=== PATIENT | female | born 1990 | race Caucasian/White ===

== ENCOUNTER 2017-05-16 13:13 | Emergency (ER) | payer BC ==
[2017-05-16] MEDS ORDERED: NS 0.9% 1000 ML* 2,000 ML IV ONE (14:27)
[2017-05-16 14:54] LABS: Hematocrit 38 % (35-47); Hemoglobin 12.6 g/dl (12.0-16.0); Mean Corpuscular HGB Conc 33 g/dl (31-36); Mean Corpuscular Hemoglobin 28 pg (27-31); Mean Corpuscular Volume 83 fL (80-97); Mean Platelet Volume 9 um3 (7.4-10.4); Red Blood Count 4.53 10^6/ul (4.0-5.4); Red Cell Distribution Width 13 % (10.5-15); White Blood Count 7.7 10^3/ul (3.5-10.8)
[2017-05-16 15:12] LABS: Albumin 4.5 g/dL (3.2-5.2); BUN/Creatinine Ratio 15.9 (8-20); C Reactive Protein 1.46 mg/L (< 5.00); Calcium 9.2 mg/dL (8.6-10.3); EGFR African American 130.3 (>60); EGFR Non-African American 101.3 (>60); Globulin 2.4 g/dL (2-4); Potassium 3.5 mmol/L (3.5-5.0); Total Bilirubin 0.5 mg/dL (0.2-1.0); Total Protein 6.9 g/dL (6.4-8.9)
--- NOTE | 2017-05-16 16:35 | RAD ---
Indication: Patient had early termination of medically. Real-time sonography of the pelvis was performed. The uterus measures 10.8 x 5.0 x 6.1 cm. Image echo measures 16 mm. No free fluid is identified. The right ovary measures 2.1 x 1.6 x 1.6 cm. Left ovary measures 2.9 x 2.0 x 2.1 cm. Previously identified free fluid is no longer present. IMPRESSION: No adnexal masses are noted. No intrauterine is noted. Endometrial echo measures 16 mm.
[2017-05-16 17:09] LABS: Urine Bacteria Absent (Absent); Urine Bilirubin Negative (Negative); Urine Glucose Negative (Negative); Urine Nitrite Negative (Negative)
[2017-05-16 18:56] LABS: Hematocrit 33 % (35-47); Hemoglobin 11.2 g/dl (12.0-16.0); Mean Corpuscular HGB Conc 34 g/dl (31-36); Mean Corpuscular Hemoglobin 29 pg (27-31); Mean Corpuscular Volume 85 fL (80-97); Mean Platelet Volume 9 um3 (7.4-10.4); Red Blood Count 3.92 10^6/ul (4.0-5.4); Red Cell Distribution Width 13 % (10.5-15); White Blood Count 8.3 10^3/ul (3.5-10.8)
--- NOTE | 2017-05-16 20:04 | ED ---
Quin Purdy Edward, scribed for Naif Murdock MD on 05/16/17 at 1435 . GI/ HPI - HPI Summary HPI Summary: 26 y/o female presents to the ED c/o sudden onset, heavy vaginal bleeding starting at around 06:00 this morning. It became worse at around 10:00 when the pt stood up at work. Pt tried using tampons but she says it bleeds right through. Pt states she uses around 1-2 pads per hour. Pt had a medical around 5 weeks ago - she was 5 weeks at the time. Pt had mild bleeding just after the . This is the first episode of heavy bleeding s/p . LNMP started several days ago that started normal. Associated sx: mild cramping, lightheadedness. Denies fevers/chills. Sx fallopian tube removal 1 year ago on the L side with Dr. Torres. PMHx kidney stones. G/P/A - - History of Current Complaint Chief Complaint: EDVaginalBleeding Stated Complaint: VAGINAL BLEEDING Hx Obtained From: Patient Hx Last Menstrual Period: 01/13/2016 Onset/Duration: Started Hours Ago, Still Present Timing: Constant Current Severity: Severe - heavy Vaginal Bleeding Description: Bright Red Number of Pads per Hour: 2 Pain Intensity: 0 Pain Characteristics: Cramping Associated Signs and Symptoms: Positive: Lightheadedness - Allergy/Home Medications Allergies/Adverse Reactions: Allergies Allergy/AdvReac Type Severity Reaction Status Date / Time Shellfish Allergy Allergy Rash Verified 01/20/16 22:33 PMH/Surg Hx/FS Hx/Imm Hx Previously Healthy: No Endocrine/Hematology History: Reports: Hx Anemia Respiratory History: Reports: Hx Asthma - anemia History: Reports: Hx Kidney Stones - LEFT URETERAL CALCULUS 05/05/2013, Other Problems/Disorders - kidney stones w/ stent placed 05/04/13 - Surgical History Surgery Procedure, Year, and Place: 01/21/16 lap left salpingectomy Hx Anesthesia Reactions: No Infectious Disease History: No Infectious Disease History: Denies: Traveled Outside the [place] in Last 30 Days - Family History Known Family History: Negative: Cardiac Disease - Social History Alcohol Use: None Hx Substance Use: No Substance Use Type: Reports: None Hx Tobacco Use: No Smoking Status (MU): Never Smoked Tobacco Review of Systems Constitutional: Negative Eyes: Negative ENT: Negative Cardiovascular: Negative Respiratory: Negative Gastrointestinal: Negative Positive: other - heavy vaginal bleeding, cramping Musculoskeletal: Negative Skin: Negative Neurological: Other - lightheadedness Psychological: Normal All Other Systems Reviewed And Are Negative: Yes Physical Exam Triage Information Reviewed: Yes Vital Signs On Initial Exam: Initial Vitals Temp Pulse Resp BP Pulse Ox 98.9 F 77 16 136/81 98 05/16/17 13:24 05/16/17 13:24 05/16/17 13:24 05/16/17 13:24 05/16/17 13:24 Vital Signs Reviewed: Yes Appearance: Positive: Well-Appearing, No Pain Distress Skin: Positive: Warm, Skin Color Reflects Adequate Perfusion, Dry Head/Face: Positive: Normal Head/Face Inspection Eyes: Positive: EOMI, CONNER ENT: Positive: Normal ENT inspection Neck: Positive: Supple, Nontender Respiratory/Lung Sounds: Positive: Clear to Auscultation, Breath Sounds Present Cardiovascular: Positive: RRR Abdomen Description: Positive: Nontender, Soft Bowel Sounds: Positive: Present Musculoskeletal: Positive: Normal, Strength/ROM Intact Neurological: Positive: Normal, Sensory/Motor Intact, Alert, Oriented to Person Place, Time Psychiatric: Positive: Affect/Mood Appropriate Diagnostics - Vital Signs Vital Signs Temp Pulse Resp BP Pulse Ox 05/16/17 13:24 98.9 F 77 16 136/81 98 - Laboratory Lab Results: Lab Results 05/16/17 05/16/17 05/16/17 Range/Units 14:45 14:45 14:45 WBC 7.7 (3.5-10.8) 10^3/ul RBC 4.53 (4.0-5.4) 10^6/ul Hgb 12.6 (12.0-16.0) g/dl Hct 38 (35-47) % MCV 83 (80-97) fL MCH 28 (27-31) pg MCHC 33 (31-36) g/dl RDW 13 (10.5-15) % Plt Count 167 (150-450) 10^3/ul MPV 9 (7.4-10.4) um3 Neut % (Auto) 77.6 (38-83) % Lymph % (Auto) 15.5 L (25-47) % [place] % (Auto) 5.6 (1-9) % Eos % (Auto) 0.8 (0-6) % Baso % (Auto) 0.5 (0-2) % Absolute Neuts (auto) 6.0 (1.5-7.7) 10^3/ul Absolute Lymphs (auto) 1.2 (1.0-4.8) 10^3/ul Absolute Monos (auto) 0.4 (0-0.8) 10^3/ul Absolute Eos (auto) 0.1 (0-0.6) 10^3/ul Absolute Basos (auto) 0 (0-0.2) 10^3/ul Absolute Nucleated RBC 0 10^3/ul Nucleated RBC % 0.1 INR (Anticoag Therapy) 0.95 (0.89-1.11) APTT 29.8 (26.0-36.3) seconds Sodium 137 (133-145) mmol/L Potassium 3.5 (3.5-5.0) mmol/L Chloride 105 (101-111) mmol/L Carbon Dioxide 25 (22-32) mmol/L Anion Gap 7 (2-11) mmol/L BUN 11 (6-24) mg/dL Creatinine 0.69 (0.51-0.95) mg/dL Est GFR ( Amer) 130.3 (>60) Est GFR (Non-Af Amer) 101.3 (>60) BUN/Creatinine Ratio 15.9 (8-20) Glucose 86 (70-100) mg/dL Lactic Acid (0.5-2.0) mmol/L Calcium 9.2 (8.6-10.3) mg/dL Total Bilirubin 0.50 (0.2-1.0) mg/dL AST 17 (13-39) U/L ALT 13 (7-52) U/L Alkaline Phosphatase 35 (34-104) U/L C-Reactive Protein 1.46 (< 5.00) mg/L Total Protein 6.9 (6.4-8.9) g/dL Albumin 4.5 (3.2-5.2) g/dL Globulin 2.4 (2-4) g/dL Albumin/Globulin Ratio 1.9 (1-3) Beta HCG, Quant 310.00 mIU/mL Urine Color Urine Appearance Urine pH (5-9) Ur Specific [place] (1.010-1.030) Urine Protein (Negative) Urine Ketones (Negative) Urine Blood (Negative) Urine Nitrate (Negative) Urine Bilirubin (Negative) Urine Urobilinogen (Negative) Ur Leukocyte Esterase (Negative) Urine WBC (Auto) (Absent) Urine RBC (Auto) (Absent) Ur Squamous Epith Cells (Absent) Urine Bacteria (Absent) Urine Glucose (Negative) 05/16/17 05/16/17 05/16/17 Range/Units 14:45 16:54 18:52 WBC 8.3 (3.5-10.8) 10^3/ul RBC 3.92 L (4.0-5.4) 10^6/ul Hgb 11.2 L (12.0-16.0) g/dl Hct 33 L (35-47) % MCV 85 (80-97) fL MCH 29 (27-31) pg MCHC 34 (31-36) g/dl RDW 13 (10.5-15) % Plt Count 145 L (150-450) 10^3/ul MPV 9 (7.4-10.4) um3 Neut % (Auto) 76.1 (38-83) % Lymph % (Auto) 17.5 L (25-47) % [place] % (Auto) 4.8 (1-9) % Eos % (Auto) 0.6 (0-6) % Baso % (Auto) 1.0 (0-2) % Absolute Neuts (auto) 6.3 (1.5-7.7) 10^3/ul Absolute Lymphs (auto) 1.5 (1.0-4.8) 10^3/ul Absolute Monos (auto) 0.4 (0-0.8) 10^3/ul Absolute Eos (auto) 0 (0-0.6) 10^3/ul Absolute Basos (auto) 0.1 (0-0.2) 10^3/ul Absolute Nucleated RBC 0.01 10^3/ul Nucleated RBC % 0.1 INR (Anticoag Therapy) (0.89-1.11) APTT (26.0-36.3) seconds Sodium (133-145) mmol/L Potassium (3.5-5.0) mmol/L Chloride (101-111) mmol/L Carbon Dioxide (22-32) mmol/L Anion Gap (2-11) mmol/L BUN (6-24) mg/dL Creatinine (0.51-0.95) mg/dL Est GFR ( Amer) (>60) Est GFR (Non-Af Amer) (>60) BUN/Creatinine Ratio (8-20) Glucose (70-100) mg/dL Lactic Acid 0.7 (0.5-2.0) mmol/L Calcium (8.6-10.3) mg/dL Total Bilirubin (0.2-1.0) mg/dL AST (13-39) U/L ALT (7-52) U/L Alkaline Phosphatase (34-104) U/L C-Reactive Protein (< 5.00) mg/L Total Protein (6.4-8.9) g/dL Albumin (3.2-5.2) g/dL Globulin (2-4) g/dL Albumin/Globulin Ratio (1-3) Beta HCG, Quant mIU/mL Urine Color Red A Urine Appearance Cloudy Urine pH 6.0 (5-9) Ur Specific [place] 1.008 L (1.010-1.030) Urine Protein 1+(30 mg/dl) H (Negative) Urine Ketones Trace H (Negative) Urine Blood 3+ H (Negative) Urine Nitrate Negative (Negative) Urine Bilirubin Negative (Negative) Urine Urobilinogen Negative (Negative) Ur Leukocyte Esterase Negative (Negative) Urine WBC (Auto) Trace(0-5/hpf) (Absent) Urine RBC (Auto) 3+(>10/hpf) H (Absent) Ur Squamous Epith Cells Present H (Absent) Urine Bacteria Absent (Absent) Urine Glucose Negative (Negative) Result Diagrams: 05/16/17 18:52 05/16/17 14:45 Lab Statement: Any lab studies that have been ordered have been reviewed, and results considered in the medical decision making process. - Ultrasound No standard instances Ultrasound Interpretation: No Acute Changes - No adnexal masses are noted. No intrauterine is noted. Endometrial echo measures 16 mm. Ultrasound Interpretation Completed By: Radiologist - ED PHYSICIAN [employer]IEWS [employer]REES Re-Evaluation - Re-Evaluation 1 Re-Evaluation Time: 17:56 Comment: Discuss plan of care 2 Re-Evaluation Time: 19:55 Comment: Discuss plan of care GIGU Course/Dx - Course Course Of Treatment: DISCUSSED RESULTS WITH PATIENT/. DISCUSSED WITH [facility]. RECHECKED HGB/HCT AND ORTHOSTATICS. DISCUSSED F/U WITH OBGYN TOMORROW IN THE AM VERSES OBSERVATION IN THE HOSPITAL. PATIENT PREFERS TO GO HOME WITH CLOSE OUT PATIENT FOLLOW UP. F/O OBGYN TOMORROW; RETURN TO ED IF WORSE. CRITICAL CARE TIME LESS THAN 30 MINUTES. Assessment/Plan: Spoke with Dr. Garcia again @ 19:49. - Diagnoses Provider Diagnoses: Excessive vaginal bleeding - Physician Notifications Discussed Care Of Patient With: Emerald Garcia Time Discussed With Above Provider: 17:24 Instructed by Provider To: Other - heavy periods common after medical Discharge - Discharge Plan Condition: Stable Disposition: HOME Patient Education Materials: Dysfunctional Uterine Bleeding (ED) Referrals: [facility] [Provider Group] Emerald Garcia MD [Medical Doctor] - Dayana Benson MD [Primary Care Provider] - Additional Instructions: FOLLOW UP WITH [facility]. CALL AT 8AM TOMORROW, 05/17/17 TO ARRANGE FOLLOW UP. RETURN TO THE EMERGENCY DEPARTMENT FOR ANY WORSENING OF YOUR CONDITION; EXCESSIVE BLEEDING, YOU FEEL ILL, FEVER, YOU FEEL LIKE PASSING OUT OR QUESTIONS OR CONCERNS. The documentation as recorded by the Quin iyer Edward accurately reflects the service I personally performed and the decisions made by me, Naif Murdock MD.
[2017-05-16 20:34] VITALS: BP 106/66
== END 2017-05-16 20:34 | disposition home or self-care (01) ==
LOC: ED 13:13
DX: O03.6 Delayed or excessive hemorrhage following complete or unspecified spontaneous abortion (principal); Z87.442 Personal history of urinary calculi; D64.9 Anemia, unspecified; J45.909 Unspecified asthma, uncomplicated
CPT/HCPCS: 36415; 76856; 80053; 81003; 81015; 83605; 84702; 85025; 85610; 85730; 86140; 96360; 99284

== ENCOUNTER 2019-05-14 17:41 | Emergency (ER) | payer BC ==
[2019-05-14 17:59] VITALS: BP 127/77
--- NOTE | 2019-05-14 18:10 | UC ---
Respiratory Complaint HPI - HPI Summary HPI Summary: Patient is a 28yo female presenting with cough x3 weeks. Notes productive of clear sputum at times. Mostly coughing at night. Notes wheezing at night as well. Denies SOB. Denies chest pain. Denies URI symptoms. Denies fever and chills. Denies n/v. Patient states she has taken mucinex without relief. States she has used her daughter's inhaler which helps at night. Denies h/o asthma and allergies. Never smoker. - History of Current Complaint Stated Complaint: URI Hx Obtained From: Patient Hx Last Menstrual Period: 3 WEEKS AGO Onset/Duration: Gradual Onset, Lasting Weeks Pain Intensity: 0 - Allergies/Home Medications Allergies/Adverse Reactions: Allergies Allergy/AdvReac Type Severity Reaction Status Date / Time MS Shellfish Allergy Allergy Rash Verified 01/20/16 22:33 [Shellfish Allergy] shellfish derived Allergy Rash Verified 05/14/19 17:56 Home Medications: Home Medications Bcp 1 tab PO DAILY 05/14/19 [History] PMH/Surg Hx/FS Hx/Imm Hx Previously Healthy: Yes - Surgical History Surgical History: Yes Surgery Procedure, Year, and Place: 01/21/16 lap left salpingectomy - Family History Known Family History: Negative: Cardiac Disease - Social History Alcohol Use: Occasionally Substance Use Type: None Smoking Status (MU): Never Smoked Tobacco - Immunization History Most Recent Influenza Vaccination: never Most Recent Tetanus Shot: 08/20/13 Most Recent Pneumonia Vaccination: never Review of Systems All Other Systems Reviewed And Are Negative: Yes Constitutional: Positive: Negative ENT: Negative: Sore Throat, Ear Ache, Nasal Discharge, Sinus Congestion, Sinus Pain/Tenderness Respiratory: Positive: Cough, Other - wheezing at night. Negative: Shortness Of Breath Cardiovascular: Positive: Negative Gastrointestinal: Positive: Negative Musculoskeletal: Positive: Negative Neurological: Positive: Negative Physical Exam Triage Information Reviewed: Yes Appearance: Well-Appearing, No Pain Distress, Well-Nourished Vital Signs: Initial Vital Signs Temp 98.7 F 05/14/19 17:57 Pulse 68 05/14/19 17:57 Resp 18 05/14/19 17:57 BP 127/77 05/14/19 17:57 Pulse Ox 99 05/14/19 17:57 Vital Signs Reviewed: Yes Eyes: Positive: Conjunctiva Clear ENT: Positive: Hearing grossly normal, Pharyngeal erythema, TMs normal, Uvula midline. Negative: Nasal congestion, Nasal drainage, Tonsillar swelling, Tonsillar exudate, Sinus tenderness Neck exam: Normal Neck: Positive: Supple, Nontender, No Lymphadenopathy Respiratory Exam: Normal Respiratory: Positive: Lungs clear, Normal breath sounds, No respiratory distress, No accessory muscle use. Negative: Crackles, Rhonchi, Stridor, Wheezing, Plerual rub Cardiovascular Exam: Normal Cardiovascular: Positive: RRR Neurological: Positive: Alert Psychological: Positive: Age Appropriate Behavior Respiratory Course/Dx - Course Course Of Treatment: VS normal, including O2 sat 99%. Lung sounds clear. Discussed viral bronchitis with patient. I treated with prednisone and albuterol inhaler. Patient states having an appointment on Tuesday with her pcp so I encouraged her to recheck her symptoms there if not improving. Patient voiced understanding and agreed with treatment plan. - Differential Dx/Diagnosis Provider Diagnosis: Acute bronchitis Discharge ED - Sign-Out/Discharge Documenting (check all that apply): Patient Departure All imaging exams completed and their final reports reviewed: No Studies - Discharge Plan Condition: Stable Disposition: HOME Prescriptions: Albuterol HFA INHALER* [Ventolin HFA Inhaler*] 1 - 2 puff INH Q6H PRN #1 mdi PRN Reason: Sob/Wheezing predniSONE TAB* [Deltasone 20 MG TAB*] 40 mg PO DAILY #10 tab Patient Education Materials: Acute Bronchitis (ED) Referrals: Dayana Benson MD [Primary Care Provider] - If Needed Additional Instructions: As discussed, your symptoms are most likely caused by a virus. Use of the albuterol inhaler as needed for your shortness of breath and wheezing. Take the prednisone as prescribed to help relieve inflammation in the lungs. You may take ibuprofen as directed for pain relief. Get plenty of rest and increase your fluid intake. Follow up with your primary care doctor appointment on Tuesday this week for re-evaluation of your symptoms if needed. - Billing Disposition and Condition Condition: STABLE Disposition: Home
== END 2019-05-14 18:25 | disposition home or self-care (01) ==
LOC: UCEAST 17:41
DX: J20.9 Acute bronchitis, unspecified (principal); R06.2 Wheezing; Z91.013 Allergy to seafood
CPT/HCPCS: 99212; G0463

== ENCOUNTER 2019-05-20 10:08 | Emergency (ER) | payer BC ==
[2019-05-20 10:17] VITALS: BP 112/70
--- NOTE | 2019-05-20 10:37 | UC ---
Eye Complaint HPI - HPI Summary HPI Summary: 28 yo WF p/w right upper lid swelling and B/L conjunctivial erythema. States she woke up with crusty yellow d/c on tight eye, denies visual changes. States she is currently being tx'd for bronchitis withe steroids - History of Current Complaint Chief Complaint: UCEye Stated Complaint: EYE ISSUE Time Seen by Provider: 05/20/19 10:22 Hx Obtained From: Patient Hx Last Menstrual Period: 3 WEEKS AGO Onset/Duration: Sudden Onset, Lasting Days Timing: Constant Severity Initially: Moderate Severity Currently: Moderate Pain Intensity: 4 - Allergies/Home Medications Allergies/Adverse Reactions: Allergies Allergy/AdvReac Type Severity Reaction Status Date / Time shellfish derived Allergy Rash Verified 05/14/19 17:56 Home Medications: Home Medications Levonorgestrel-Ethin Estradiol [Vienva-28 Tablet] 1 tab PO DAILY 05/20/19 [ History Confirmed 05/20/19] PMH/Surg Hx/FS Hx/Imm Hx - Surgical History Surgical History: Yes Surgery Procedure, Year, and Place: 01/21/16 lap left salpingectomy - Family History Known Family History: Positive: Non-Contributory Negative: Cardiac Disease - Social History Alcohol Use: Occasionally Substance Use Type: None Smoking Status (MU): Never Smoked Tobacco - Immunization History Most Recent Influenza Vaccination: never Most Recent Tetanus Shot: 08/20/13 Most Recent Pneumonia Vaccination: never Review of Systems All Other Systems Reviewed And Are Negative: Yes Constitutional: Positive: Negative Skin: Positive: Negative Eyes: Positive: Drainage, Eye Redness. Negative: Blurred Vision, Diplopia, Photophobia ENT: Positive: Negative Respiratory: Positive: Negative Cardiovascular: Positive: Negative Gastrointestinal: Positive: Negative Motor: Positive: Negative Neurovascular: Positive: Negative Musculoskeletal: Positive: Negative Neurological: Positive: Negative Psychological: Positive: Negative Physical Exam - Summary Physical Exam Summary: Reviewed: Yes Eye Exam: Normal Eyes: Positive: B/L Conjunctival erythema and mild to moderate right upper lid swelling ENT: Positive: Normal ENT inspection Neck: Positive: Supple Respiratory Exam: Normal Respiratory: Positive: Lungs clear, Normal breath sounds. Cardiovascular Exam: Normal Cardiovascular: Positive: RRR Abdomen: NT/ND Musculoskeletal Exam: Normal Neurological Exam: Normal Psychological Exam: Normal Skin Exam: Normal Vital Signs: Initial Vital Signs Temp 36.6 C 05/20/19 10:12 Pulse 80 05/20/19 10:12 Resp 18 05/20/19 10:12 BP 112/70 05/20/19 10:12 Pulse Ox 100 05/20/19 10:12 Eye Complaint Course/Dx - Differential Dx/Diagnosis Provider Diagnosis: Conjunctivitis, Blepharitis of right upper eyelid Discharge ED - Sign-Out/Discharge Documenting (check all that apply): Patient Departure All imaging exams completed and their final reports reviewed: No Studies - Discharge Plan Condition: Stable Disposition: HOME Prescriptions: Ciprofloxacin 0.3% OPTH.TERRENCE* [Cipro 0.3% Opth*] 2 drop BOTH EYES Q8H 7 Days #1 btl Patient Education Materials: Conjunctivitis (ED), Blepharitis (ED) Referrals: Maryjane Arrieta [facility] [Primary Care Provider] - - Billing Disposition and Condition Condition: STABLE Disposition: Home
== END 2019-05-20 10:45 | disposition home or self-care (01) ==
LOC: UCEAST 10:08
DX: H01.001 Unspecified blepharitis right upper eyelid (principal); H10.9 Unspecified conjunctivitis; Z91.013 Allergy to seafood
CPT/HCPCS: 99212; G0463

== ENCOUNTER 2023-09-17 21:55 | Inpatient (IN) ==
[2023-09-17] MEDS ORDERED: Buffered Lidocaine 1% SYRIN 1 ml INTRADERM ONE ×2 (22:32→22:53)
[2023-09-17] MEDS ORDERED: Lidocaine 1% VIAL 10 MG/ML 30 ML VIAL INJ PRN (22:53)
[2023-09-17] MEDS ORDERED: Lactated Ringers 1000 ml BAG 1,000 ML IV ONE (22:53)
[2023-09-17] MEDS: Lactated Ringers 1000 ml BAG 1,000 ML IV SCH (23:53)
[2023-09-18] MEDS: Penicillin G Potassium IV 5,000,000 UNITS in NS 0.9% 100 ml BAG 100 ML IVPB ONE (00:04)
[2023-09-18 00:16] LABS: ABS Lymphocytes 1.4 10^3/uL (1.0-4.8); ABS Monocytes 0.7 10^3/uL (0.0-0.9); ABS Neutrophils 7.6 10^3/uL (1.5-7.6); ABS Nucleated RBC 0.01 10^3/ul; Eosinophil % 0.5 %; Hematocrit 31.4 % (35-45); Hemoglobin 10.7 g/dL (11.5-14.3); Lymphocyte % 14.1 %; Mean Corpuscular Hemoglobin 26.9 pg (27-33); Mean Corpuscular Hgb Conc 34.1 g/dL (31-36); Mean Corpuscular Volume 78.9 fL (80-97); Mean Platelet Volume 9.6 fL (7.5-11.2); Nucleated Red Blood Cells % 0.1 %/100WBC (0.0-0.8); Platelet Count 174 10^3/uL (150-450); Red Blood Count 3.98 10^6/uL (3.63-4.92); Red Cell Distribution Width 14.6 % (12-17); White Blood Count 9.8 10^3/uL (3.8-11.8)
[2023-09-18 00:38] LABS: Urine Benzodiazepine Screen None Detected (None Detect); Urine Cannabinoids Screen None Detected (None Detect); Urine Opiates Screen None Detected (None Detect)
[2023-09-18] MEDS: OBEPIDURAL (200 ML) 200 ML EPIDURAL ONE (02:15)
[2023-09-18] MEDS ORDERED: Phenylephrine 40 mcg/mL 10mL (400mcg) SYRINGE IV PUSH PRN ×2 (02:24)
[2023-09-18] MEDS ORDERED: Sodium Citrate/Citric Acid LIQ 15 ML UDC PO PRN (02:24)
[2023-09-18 03:16] LABS: Urine Appearance Clear; Urine Bilirubin Negative (Negative); Urine Blood Negative (Negative); Urine Color Light-Yellow; Urine Glucose Negative (Negative); Urine Ketones 2+ (Negative); Urine Nitrite Negative (Negative); Urine Protein Negative (Negative); Urine Specific Gravity 1.024 (1.002-1.030); Urine Urobilinogen Negative (Negative); Urine pH 5.5 (5.0-8.0)
[2023-09-18] MEDS: Penicillin G Potassium IV 3,000,000 UNITS in NS 0.9% 100 ml BAG 100 ML IVPB SCH (04:03)
[2023-09-18] MEDS: OBEPIDURAL (200 ML) 200 ML EPIDURAL SCH (05:29)
[2023-09-18] MEDS: Lidocaine 1.5% EPI 1:200,000 30 ML SDV ONE (05:30)
[2023-09-18] MEDS: Oxytocin in LR 20,000 MILLI.UNIT/1,000 ML BAG IV SCH (07:20)
[2023-09-18] MEDS ORDERED: Glycerin ADULT 2.4 gm SUPP PR PRN (14:58)
[2023-09-18] MEDS ORDERED: Dibucaine 1% OINT 28.35 GM TUBE PR PRN (14:58)
[2023-09-18] MEDS ORDERED: Witch Hazel PAD JAR TOPICAL PRN (14:58)
[2023-09-19 06:55] LABS: ABS Lymphocytes 1.2 10^3/uL (1.0-4.8); ABS Monocytes 0.8 10^3/uL (0.0-0.9); ABS Neutrophils 9.3 10^3/uL (1.5-7.6); Eosinophil % 0.3 %; Hematocrit 25.8 % (35-45); Hemoglobin 8.7 g/dL (11.5-14.3); Lymphocyte % 10.4 %; Mean Corpuscular Hemoglobin 26.6 pg (27-33); Mean Corpuscular Hgb Conc 33.6 g/dL (31-36); Mean Corpuscular Volume 78.9 fL (80-97); Mean Platelet Volume 9.6 fL (7.5-11.2); Platelet Count 134 10^3/uL (150-450); Red Blood Count 3.27 10^6/uL (3.63-4.92); Red Cell Distribution Width 14.3 % (12-17); White Blood Count 11.3 10^3/uL (3.8-11.8)
[2023-09-19] MEDS: Lactated Ringers 1000 ml BAG 1,000 ML IV SCH (08:31)
[2023-09-19] MEDS: Lactated Ringers 1000 ml BAG 1,000 ML IV ONE (08:31)
[2023-09-19] MEDS: Measles, Mumps,Rubella VACC 0.5 ML/VIAL SUBCUT ONE (08:32)
[2023-09-19] MEDS: Varicella Virus Vaccine Live 0.5 ML VIAL SUBCUT ONE (08:32)
[2023-09-20 08:17] VITALS: BP 113/70
== END 2023-09-20 14:18 | disposition home or self-care (01) | DRG 560 ==
LOC: MCHOBOUT 21:55 → MCHOB 22:56
PROVIDERS: ADMIT Midwife; ATTEND Midwife

== ENCOUNTER 2023-09-23 11:59 | Inpatient (IN) ==
[2023-09-23 12:26] LABS: ABS Eosinophils 0.1 10^3/uL (0.0-0.5); ABS Lymphocytes 0.9 10^3/uL (1.0-4.8); ABS Monocytes 0.4 10^3/uL (0.0-0.9); ABS Neutrophils 6.5 10^3/uL (1.5-7.6); ABS Nucleated RBC 0.01 10^3/ul; Eosinophil % 0.8 %; Hematocrit 29.3 % (35-45); Hemoglobin 9.7 g/dL (11.5-14.3); Mean Corpuscular Hemoglobin 26.7 pg (27-33); Mean Corpuscular Hgb Conc 33.2 g/dL (31-36); Mean Corpuscular Volume 80.3 fL (80-97); Mean Platelet Volume 9.3 fL (7.5-11.2); Nucleated Red Blood Cells % 0.1 %/100WBC (0.0-0.8); Platelet Count 174 10^3/uL (150-450); Red Blood Count 3.65 10^6/uL (3.63-4.92); Red Cell Distribution Width 14.6 % (12-17); White Blood Count 7.9 10^3/uL (3.8-11.8)
[2023-09-23 12:39] LABS: Albumin 3.6 g/dL (3.2-5.2); Albumin/Globulin Ratio 1.6 (1-3); Calcium 8.8 mg/dL (8.6-10.3); Creatinine, Serum 0.58 mg/dL (0.51-0.95); Globulin 2.3 g/dL (2-4); Potassium 3.7 mmol/L (3.5-5.0); Total Bilirubin 0.4 mg/dL (0.2-1.0); Total Protein 5.9 g/dL (6.4-8.9); eGFR CKD-EPI 121.7 (>60)
[2023-09-23 12:42] LABS: INR 0.93 (0.83-1.13)
[2023-09-23 13:55] LABS: High Sensitivity Troponin 1 Hr 253 pg/mL (<15)
[2023-09-23 14:02] LABS: Activated Partial Thrombo Time 30.3 seconds (26.0-38.0)
[2023-09-23] MEDS: Iodixanol (CONTRAST) 320 MG/ML 100 ML SDV IV ONE (15:21)
[2023-09-23] MEDS: Iohexol 350 (CONTRAST) 500 ML MDV IV ONE (15:21)
[2023-09-23] MEDS: Heparin 5000 UNITS/ML 1 mL VIAL IV SCH (17:41)
[2023-09-23] MEDS: Heparin DRIP 25,000 UNITS BAG 25,000 UNITS/250 ML BAG IV SCH (17:44)
[2023-09-23 18:52] LABS: ABS Basophils 0.1 10^3/uL (0.0-0.1); ABS Eosinophils 0.1 10^3/uL (0.0-0.5); ABS Lymphocytes 1.2 10^3/uL (1.0-4.8); ABS Monocytes 0.4 10^3/uL (0.0-0.9); Eosinophil % 1.1 %; Hematocrit 27.8 % (35-45); Hemoglobin 9.3 g/dL (11.5-14.3); Lymphocyte % 13.3 %; Mean Corpuscular Hemoglobin 26.9 pg (27-33); Mean Corpuscular Hgb Conc 33.4 g/dL (31-36); Mean Corpuscular Volume 80.5 fL (80-97); Mean Platelet Volume 9.4 fL (7.5-11.2); Platelet Count 178 10^3/uL (150-450); Red Blood Count 3.45 10^6/uL (3.63-4.92); Red Cell Distribution Width 14.3 % (12-17); White Blood Count 8.7 10^3/uL (3.8-11.8)
[2023-09-23 19:46] LABS: Creatinine, Serum 0.54 mg/dL (0.51-0.95); eGFR CKD-EPI 123.8 (>60)
[2023-09-23] MEDS: Labetalol IV 5 MG/ML 20 ml VIAL IV PUSH ONE (20:54)
[2023-09-23] MEDS: Furosemide 40 mg/4 ml IV VIAL IV ONE (21:44)
[2023-09-24 01:29] LABS: Urine Appearance Clear; Urine Bilirubin Negative (Negative); Urine Blood 2+ (Negative); Urine Color Colorless; Urine Glucose Negative (Negative); Urine Ketones 1+ (Negative); Urine Nitrite Negative (Negative); Urine Protein Negative (Negative); Urine Specific Gravity 1.006 (1.002-1.030); Urine Urobilinogen Negative (Negative)
[2023-09-24 01:59] LABS: Urine Bacteria Absent /HPF (Absent); Urine Red Blood Cell 1+(3-5/hpf) /HPF (0-Trace); Urine Squamous Epithelial Cell Present /HPF (Absent); Urine White Blood Cell 1+(6-10/hpf) /HPF (0-Trace)
[2023-09-24 07:13] LABS: ABS Basophils 0.1 10^3/uL (0.0-0.1); ABS Eosinophils 0.1 10^3/uL (0.0-0.5); ABS Lymphocytes 1.2 10^3/uL (1.0-4.8); ABS Monocytes 0.6 10^3/uL (0.0-0.9); ABS Neutrophils 6.9 10^3/uL (1.5-7.6); Eosinophil % 1.1 %; Hematocrit 29.3 % (35-45); Hemoglobin 9.9 g/dL (11.5-14.3); Mean Corpuscular Hemoglobin 26.9 pg (27-33); Mean Corpuscular Hgb Conc 33.9 g/dL (31-36); Mean Corpuscular Volume 79.4 fL (80-97); Mean Platelet Volume 8.6 fL (7.5-11.2); Platelet Count 197 10^3/uL (150-450); Red Blood Count 3.69 10^6/uL (3.63-4.92); Red Cell Distribution Width 14.7 % (12-17); White Blood Count 8.8 10^3/uL (3.8-11.8)
[2023-09-24 07:58] LABS: Creatinine, Serum 0.54 mg/dL (0.51-0.95); eGFR CKD-EPI 123.8 (>60)
[2023-09-24 16:36] LABS: Magnesium 1.7 mg/dL (1.9-2.7)
[2023-09-24 16:51] LABS: TSH Ultra Thyroid Stim Horm 2.75 mcIU/mL (0.34-5.60)
[2023-09-24 16:56] LABS: Ferritin 16.8 ng/mL (11-307)
[2023-09-24] MEDS: Furosemide 20 mg/2 ml IV VIAL IV ONE (17:10)
[2023-09-24] MEDS: Potassium Chlor 20 meq TAB.ER PO ONE (17:10)
[2023-09-25 05:51] LABS: Calcium 8.2 mg/dL (8.6-10.3); Creatinine, Serum 0.52 mg/dL (0.51-0.95); Magnesium 1.7 mg/dL (1.9-2.7); Potassium 3.2 mmol/L (3.5-5.0)
[2023-09-25 08:04] VITALS: BP 147/74
[2023-09-25] MEDS: Potassium Chlor 20 meq TAB.ER PO ONE (08:04)
== END 2023-09-25 08:35 | disposition home or self-care (01) | DRG 561 ==
LOC: ED 11:59 → EDHOLD 11:59 → SUATTDRO 20:30 → MEDTELE 21:18
PROVIDERS: ADMIT Internal Medicine; ATTEND Hospitalist